=== PATIENT | female | born 1955 | race Caucasian/White ===

== ENCOUNTER 2018-07-28 07:44 | Inpatient (IN) | payer MEDICAID, OTHER ==
[2018-07-27 15:22] VITALS: BMI 34.4
[~2018-07-28] VITALS: Ht 157.5 cm; Wt 99.3 kg
[2018-07-28] VITALS (18 sets, daily range): BP systolic 96–141; BP diastolic 52–70; PULSE 58–74; RESP 9–23; Ht 157.5 cm; Wt 99.3 kg
[2018-07-28] MEDS ORDERED: ONDANSETRON 4 MG INJ IV ONE (08:00)
[2018-07-28] MEDS ORDERED: LANSOPRAZOLE 30 MG CAP PO ONE (08:00)
[2018-07-28] MEDS ORDERED: DEXAMETHASONE 4 MG/ML 1 ML INJ IV ONE (08:00)
[2018-07-28] MEDS ORDERED: ACETAMINOPHEN 500 MG TAB PO ONE (08:00)
[2018-07-28] MEDS ORDERED: LACTATED RINGER'S 1,000 ML IV* SCH (08:00)
[2018-07-28] MEDS ORDERED: CEFAZOLIN 1 GM/50 ML (PMX) 50 ML IVPB ONE (08:00)
[2018-07-28] MEDS ORDERED: MTF1000T PO (08:31)
[2018-07-28] MEDS ORDERED: GABA300C16 PO (08:31)
[2018-07-28] MEDS ORDERED: SULI150T PO (08:32)
[2018-07-28] MEDS ORDERED: LORA10TA3 PO (08:33)
[2018-07-28] MEDS ORDERED: BENA40TA56 PO (08:33)
[2018-07-28] MEDS ORDERED: FER325 PO (08:33)
[2018-07-28] MEDS ORDERED: [UNRECOGNIZED DRUG - CODE] PO (08:35)
[2018-07-28] MEDS ORDERED: CHRO1TAB6 PO (08:36)
[2018-07-28] MEDS ORDERED: MULT-88 PO (08:36)
[2018-07-28] MEDS ORDERED: HIP PAIN COCKTAIL VANCO INJ SCH ×7 (09:30)
[2018-07-28] MEDS ORDERED: oxyCODONE (CR) 10 MG TAB [oxyCONTIN] PO SCH (09:30)
[2018-07-28] MEDS ORDERED: DEXAMETHASONE 4 MG/ML 5 ML INJ ONE (09:47)
[2018-07-28] MEDS ORDERED: FENTAnyl 50 MCG/ML VIAL ONE (09:47)
[2018-07-28] MEDS ORDERED: CEFAZOLIN 1 GM INJ ONE (09:47)
[2018-07-28] MEDS ORDERED: GLYCOPYRROLATE 0.4 MG INJ ONE (09:47)
[2018-07-28] MEDS ORDERED: ONDANSETRON 4 MG INJ ONE (09:47)
[2018-07-28] MEDS ORDERED: ROCURONIUM 50 MG INJ ONE (09:47)
[2018-07-28] MEDS ORDERED: PROPOFOL 20 ML ONE (09:47)
[2018-07-28] MEDS ORDERED: MIDAZOLAM 1 MG/ML 2 ML INJ ONE (09:47)
[2018-07-28] MEDS ORDERED: morphine SULFATE/PF (10 MG/10 ML) INJ ONE (09:48)
[2018-07-28] MEDS ORDERED: BACITRACIN 50000 UNITS INJ ONE (09:59)
[2018-07-28] MEDS ORDERED: POLYMYXIN B 500000 UNIT INJ ONE (10:01)
--- NOTE | 2018-07-28 10:26 | HPN ---
Date/Time of Note Date/Time of Note DATE: 07/28/18 TIME: 10:25 Interval H&P Admission Note Pt. seen H&P reviewed: No system changes RENETTA LOZANO MD Jul 28, 2018 10:26
--- NOTE | 2018-07-28 10:37 | PREAC ---
Date/Time of Note Date/Time of Note DATE: 07/28/18 TIME: 10:35 Anesthesia Eval and Record Evaluation Time Pre-Procedure Interview DATE: 07/28/18 TIME: 10:35 Age 63 Sex female NPO: 8 hrs Preoperative diagnosis RIGHT HIP PRIMARY OSTEOARTHRITIS Planned procedure RIGHT SAMANTHA Past Medical History Past Medical History: Includes Cardio: HTN Endo: Diabetes GI: GERD, Morbid obesity Surgery & Anesthesia Issues No known issue Meds Anticoagulation: No Beta Tammie within 24 hr: No Reason Beta Tammie not given: Pt. not on B-Tammie Reported Medications Chrom Deyvi/Brindall Rizvi (GARCINIA [place] TABLET) 1 Each Tablet, 1 EACH PO BID, TAB 07/28/18 Multivit with Calcium,Iron,Min (Women's Daily Formula) 1 Each Tablet, 1 EACH PO DAILY, TAB 07/28/18 Oxycodone HCl/Acetaminophen (Oxycodon-Acetaminophen 7.5-325) 1 Each Tablet, 1 EACH PO BID PRN for SEVERE PAIN LEVEL 7-10, TAB 07/28/18 Ferrous Sulfate* (Ferrous Sulfate*) 325 Mg Tabec, 325 MG PO BID, TAB 07/28/18 Loratadine* (Loratadine*) 10 Mg Tablet, 10 MG PO DAILY, #30 TAB 07/28/18 Benazepril Hcl* (Benazepril Hcl*) 40 Mg Tablet, 40 MG PO DAILY, #30 TAB 07/28/18 Sulindac* (Sulindac*) 150 Mg Tablet, 150 MG PO BID, TAB 07/28/18 Gabapentin* (Gabapentin*) 300 Mg Capsule, 300 MG PO TID, #90 CAP 07/28/18 Metformin* (Glucophage*) 1,000 Mg Tablet, 1000 MG PO BID, #60 TAB 07/28/18 Current Medications Lactated Ringer's 1,000 ml @ 125 mls/hr Q8H IV* ; Start 07/28/18 at 08:00; Stop 07/28/18 at 15:59 Oxycodone HCl (Oxycontin) 10 mg ONCE PO Last administered on 07/28/18at 09:20; Admin Dose 10 MG; Start 07/28/18 at 09:30; Stop 07/28/18 at 12:00 Ropivacaine/ Morphine Sulfate/ Clonidine/ Epinephrine/ Ketorolac Tromethamine/ Vancomycin HCl/ Sodium Chloride INTRA-OP INJ ; Start 07/28/18 at 09:30; Stop 07/28/18 at 16:00 Meds reviewed: Yes Allergies Coded Allergies: trimethoprim (Unverified Allergy, Severe, WHITE BLOOD CELL COUNT DROPS, 07/28/18) PER PT ciprofloxacin (Unverified Allergy, Unknown, RASHES, 07/28/18) PER PT codeine (Unverified Allergy, Unknown, RASHES, 07/28/18) PER PT phenobarbital (Unverified Allergy, Unknown, 07/27/18) sulfamethoxazole (Unverified Allergy, Unknown, RASHES, 07/28/18) PER PT valproic acid (Unverified Allergy, Unknown, RASHES, 07/28/18) PER PT Allergies Reviewed: Yes Labs/Studies Labs Reviewed: Reviewed by anesthesiologist test: N/A Studies: ECG (NK), CXR Pre-procedure Exam Last vitals Vital Signs Date Temp Pulse Resp B/P (MAP) Pulse Ox O2 O2 Flow FiO2 Time Delivery Rate 07/28/18 98.2 65 16 133/60 97 Room Air 09:27 (84) Airway: Adequate mouth opening, Adequate thyromental dist Mallampati: Mallampati II Teeth: Normal Lung: Normal Heart: Normal ASA Physical Status ASA physical status: 3 Emergency: None Planned Anesthetic General/MAC: ETT Neuraxial: Spinal Planned Pain Management Sub-arachniod narcotics, Parenteral pain med Pre-operative Attestations Prior to commencing anesthesia and surgery, the patient was re-evaluated, there was verification of: *The patient's identity *The results of appropriate recent lab work and preoperative vital signs *The above evaluation not changing prior to induction *Anesthetic plan, risk benefits, alternative and complications discussed with patient/family; questions answered; patient/family understands, accepts and wishes to proceed. oGrdon Landis M.D. Jul 28, 2018 10:37
[2018-07-28] MEDS: TRANEXAMIC ACID 1GM/100ML(PMX) 100 ML PRE-OP X1 IVPB ONE (11:15)
[2018-07-28] MEDS ORDERED: TRANEXAMIC ACID 1GM/100ML(PMX) 100 ML ONE (11:39)
[2018-07-28] MEDS ORDERED: MIDAZOLAM 1 MG/ML 2 ML INJ IV PRN (12:00)
[2018-07-28] MEDS ORDERED: LABETALOL HCL 20MG INJ IV PRN (12:00)
[2018-07-28] MEDS ORDERED: DIPHENHYDRAMINE 50 MG INJ IV PRN ×2 (12:00)
[2018-07-28] MEDS ORDERED: ALBUTEROL 0.083% (NEB) 2.5 MG/3 ML AMP HHN PRN (12:00)
[2018-07-28] MEDS ORDERED: NALBUPHINE HCL (10 MG/1 ML) INJ IV PRN (12:00)
[2018-07-28] MEDS ORDERED: MEPERIDINE 25 MG INJ IV PRN (12:00)
[2018-07-28] MEDS ORDERED: ZOLPIDEM 5 MG TAB PO PRN (12:00)
[2018-07-28] MEDS ORDERED: ONDANSETRON 4 MG INJ IV PRN ×2 (12:00)
[2018-07-28] MEDS ORDERED: IPRATROPIUM (NEB) 0.5 MG/2.5 ML AMP HHN PRN (12:00)
[2018-07-28] MEDS ORDERED: hydrALAzine 20 MG INJ IV PRN (12:00)
[2018-07-28] MEDS ORDERED: HYDROmorphONE 1 MG/5 ML IV SYRINGE IV PRN ×3 (12:00)
[2018-07-28] MEDS ORDERED: TRIMETHOBENZAMIDE 100 MG/ML VIAL IM PRN ×2 (12:00)
[2018-07-28] MEDS ORDERED: NALOXONE (0.4 MG/ML) INJ IV PRN ×2 (12:00→13:30)
[2018-07-28] MEDS ORDERED: EPHEDrine SULFATE 50 MG/5 ML SYG IV PRN (12:00)
[2018-07-28] MEDS ORDERED: FENTAnyl 50 MCG/ML VIAL IV PRN ×3 (12:00)
[2018-07-28] MEDS ORDERED: morphine 2 MG INJ IV PRN ×2 (12:00)
[2018-07-28] MEDS ORDERED: SUGAMMADEX SODIUM 200 MG/2 ML VIAL IV ONE (12:58)
--- NOTE | 2018-07-28 13:02 | SIPON ---
Date/Time of Note Date/Time of Note DATE: 07/28/18 TIME: 13:01 Operative Report Preoperative Diagnosis Right Hip Osteoarthritis Postoperative Diagnosis Same Operation/Procedure Performed Right Total Hip Arthroplasty Surgeon Elana Lozano MD assistive technology specialist Naun Dickens Second assist: MIKA SAMS Anesthesia: spinal Estimated blood loss: other Transfusion Required none Specimen bone Grafts/Implants none Complications none ELANA LOZANO MD Jul 28, 2018 13:02
--- NOTE | 2018-07-28 13:06 | OPR ---
Date/Time of Note Date/Time of Note DATE: 07/28/18 TIME: 13:02 Operative Report Free Text/Dictation DATE OF OPERATION: July 28, 2018 PREOPERATIVE DIAGNOSIS: Right hip osteoarthritis. POSTOPERATIVE DIAGNOSIS: Right hip osteoarthritis. PROCEDURES PERFORMED: 1. Right total hip arthroplasty. CPT code 90698. 2. Computer assisted navigational procedure, CPT code 37500. 3. Interpretation of AP Pelvis x-ray. 4. Interpretation of right hip, 2 views. SURGEON: Renetta Lozano. ASSEMBLY OPERATOR: 1. MARCEL Conner 2. Naun Dickens. ANESTHESIOLOGIST: Dr. Landis ANESTHESIA: Spinal ESTIMATED BLOOD LOSS: 300 mL. COMPLICATIONS: None. SPECIMENS: Resected bone. DISPOSITION: PACU in stable condition. IMPLANT USED: A DePuy Actis size 4 standard stem, 32/+1 delta ceramic femoral head, 48 [place] Cup, 32 mm liner COMPLICATIONS: None. DISPOSITION: To PACU in stable condition. INDICATION FOR PROCEDURE: This is an 63 year-old female with endstage osteoarthritis of the right hip who had failed nonoperative management. Risks, benefits, alternatives of surgical intervention were discussed with the patient and informed consent was obtained. The risks of surgery include but are not limited to infection, deep venous thrombosis, pulmonary embolism, leg length discrepancy, fracture, damage to neurovascular structures requiring repair, loosening of the prosthesis, wear of prosthesis, need for revision surgery, heart attack, stroke, need for blood transfusion, risks associated with anesthesia and even . DESCRIPTION OF PROCEDURE: The patient was met in the preoperative suite and the correct operative site was confirmed and marked. Patient was then brought into operating room. After induction of general anesthesia, the patient was placed in the supine position on the table. The right lower extremity was prepped and draped in the usual sterile fashion. Before starting, a timeout was taken to identify the correct operative site, the patients name and medical record number and to confirm the preoperative antibiotics consisting of 1 gram of IV Ancef, along with 1 gram of tranexamic acid were administered. At this point, an 8 cm incision was made approximately 2 cm lateral and 1 cm distal to the ASIS. The incision was carried down to the fascia. The fascia was then incised. Then, 2 Allis clamps were placed. The interval was then bluntly developed and the tensor fascia steven was then retracted laterally. The lateral circumflex vessels were identified and coagulated. The anterior capsule was then visualized and a capsulotomy was performed. At this point, markings were made for the napkin ring osteotomy of the femoral neck. Using the saw the initial osteotomy was th en made and completed with the use of an osteotome. A Radha was then used to remove the napkin ring and a corkscrew was then placed in the femoral head and the head was then removed. The head was sized to 44 mm. Sequential reaming was begun with a 43 mm reamer, going up to a 47 mm reamer. A trial 48 mm cup was then impacted and the radlink was then used to determine the appropriate anteversion and abduction of the cup. The cup was noted to be in approximately 41 degrees of inclination, and 18 degrees of anteversion. The trial was then removed. The appropriate size cup was then placed and again the radlink was used to determine the inclination and anteversion, and was noted be unchanged. The 32 mm liner was then impacted into place and the final acetabular x-rays were taken which again demonstrated the cup to be in appropriate abduction and anteversion. At this point, the femoral lift was then used and the leg was then placed in external rotation, extension, and adduction. Retractors were placed and the femoral releases were performed using a box osteotome followed by a canal finder. Sequential broaching was begun with a 0 actis broach going up to a size 4 standard broach. The trial 4 standard offset stem along with a 32/+1 trial head and neck were placed. The hip was then reduced and taken through range of motion, noted to be stable in extension and external rotation of up to 110 degrees. AP x-rays of the pelvis and right hip, 2 view x-rays were taken. The x-rays demonstrated the prosthesis to be in the correct position with equal leg lengths. The trial components were then removed. The appropriate sized components were then placed. The hip was again reduced with unchanged stability and equal leg lengths and no fractures were seen. The hip was again taken through range of motion and noted to be stable to extension and external rotation. The wound was then thoroughly irrigated. The capsule and the fascia were closed using #1 Stratafix. The subcutaneous tissue was closed using 2-0 Vicryl and the skin with 4-0 Monocryl in subcuticular fashion and Steri-Strips were applied. There were no complications. Patient was awakened and taken to postoperative care unit in stable condition. Prior to transfer, the patient was noted to have equal leg lengths and a palpable dorsalis pedis pulse. POSTOPERATIVE CARE: Patient will be weightbearing as tolerated. Patient will work with physical therapy, and receive multimodal pain management.. Patient will receive two additional doses of IV Ancef along with aspirin 81 mg p.o. b.i.d. for 6 weeks. Patient will have SCDs while in the hospital. Upon discharge, patient will follow up in my office within 2 weeks postoperatively. RENETTA LOZANO MD Jul 28, 2018 13:06
[2018-07-28] MEDS: TRANEXAMIC ACID 1GM/100ML(PMX) 100 ML INTRA-OP X1 IVPB ONE (13:09)
[2018-07-28] MEDS ORDERED: HYDROCODONE/APAP (5/325) TAB PO PRN (13:30)
[2018-07-28] MEDS ORDERED: DOCUSATE SODIUM 100 MG CAP PO ONE ×2 (13:30→13:39)
[2018-07-28] MEDS ORDERED: NACL 0.9% 3 ML SYG IV SCH (13:30)
[2018-07-28] MEDS: ONDANSETRON 4 MG INJ IV SCH ×2 (13:30→19:30)
[2018-07-28] MEDS ORDERED: oxyCODONE 5 MG TAB PO PRN (13:30)
[2018-07-28] MEDS ORDERED: ASPIRIN 81 MG TAB ONE (13:39)
[2018-07-28] MEDS ORDERED: CEFAZOLIN 2 GM/50 ML (PMX) 50 ML IVPB ONE (13:48)
[2018-07-28] MEDS: CEFAZOLIN 2 GM/50 ML (PMX) 50 ML IVPB SCH ×2 (13:53→21:38)
--- NOTE | 2018-07-28 14:11 | PAC ---
Date/Time of Note Date/Time of Note DATE: 07/28/18 TIME: 14:11 Post-Anesthesia Notes Post-Anesthesia Note Last documented vital signs Vital Signs Date Temp Pulse Resp B/P (MAP) Pulse Ox O2 O2 Flow FiO2 Time Delivery Rate 07/28/18 98.0 13:45 07/28/18 65 16 133/60 97 Room Air 09:27 (84) Activity: WNL Respiratory function: WNL Cardiovascular function: WNL Mental status: Baseline Pain reasonably controlled: Yes Hydration appropriate: Yes Nausea/Vomiting absent: Yes Gordon Landis M.D. Jul 28, 2018 14:11
--- NOTE | 2018-07-28 16:38 | CONS ---
Assessment/Plan Assessment/Plan Hospital Course (Demo Recall) 63 yo female with DMII, obesity, hypertension who is POD0 for SAMANTHA. We have been asked to assist with medication management s/p SAMANTHA: - Pain control - DVT ppx - PT/OT DMII: - continue metfomrin Hypertension: - Continue lisinopril Consultation Date/Type/Reason Admit Date/Time Jul 28, 2018 at 07:44 Reason for Consultation Med management Date/Time of Note DATE: 07/28/18 TIME: 16:33 Hx of Present Illness 63 yo female with h/o OA who is admitted following R SAMANTHA Surgery uncomplicated. pain controlled Says she generally takes oxycodone for pain. Metformin for DMII. Lisionpirl for hypertension Wants to go to sleep now Constitutional: no complaints, improved Eyes: no complaints ENT: no complaints Respiratory: no complaints Cardiovascular: no complaints Gastrointestinal: no complaints Genitourinary: no complaints Musculoskeletal: no complaints Skin: no complaints Neurologic: no complaints Endocrine: no complaints Lymphatic: no complaints Psychological: no complaints, nl mood/affect Immunologic: no complaints Past Medical History Medical History: diabetes Home Meds Reported Medications Chrom Deyvi/Brindall Rizvi (GARCINIA [place] TABLET) 1 Each Tablet, 1 EACH PO BID, TAB 07/28/18 Multivit with Calcium,Iron,Min (Women's Daily Formula) 1 Each Tablet, 1 EACH PO DAILY, TAB 07/28/18 Oxycodone HCl/Acetaminophen (Oxycodon-Acetaminophen 7.5-325) 1 Each Tablet, 1 EACH PO BID PRN for SEVERE PAIN LEVEL 7-10, TAB 07/28/18 Ferrous Sulfate* (Ferrous Sulfate*) 325 Mg Tabec, 325 MG PO BID, TAB 07/28/18 Loratadine* (Loratadine*) 10 Mg Tablet, 10 MG PO DAILY, #30 TAB 07/28/18 Benazepril Hcl* (Benazepril Hcl*) 40 Mg Tablet, 40 MG PO DAILY, #30 TAB 07/28/18 Sulindac* (Sulindac*) 150 Mg Tablet, 150 MG PO BID, TAB 07/28/18 Gabapentin* (Gabapentin*) 300 Mg Capsule, 300 MG PO TID, #90 CAP 07/28/18 Metformin* (Glucophage*) 1,000 Mg Tablet, 1000 MG PO BID, #60 TAB 07/28/18 Medications Current Medications Hydromorphone HCl (Dilaudid) 0.2 mg PACU PRN IV MILD PAIN 1-3; Start 07/28/18 at 12:00; Stop 07/28/18 at 17:00 Hydromorphone HCl (Dilaudid) 0.4 mg PACU PRN IV MOD PAIN 4-6; Start 07/28/18 at 12:00; Stop 07/28/18 at 17:00 Hydromorphone HCl (Dilaudid) 0.6 mg PACU PRN IV SEVERE PAIN 7-10; Start 07/28/18 at 12:00; Stop 07/28/18 at 17:00 Fentanyl (Sublimaze) 25 mcg PACU ORDER PRN IV MILD PAIN 1-3; Start 07/28/18 at 12:00; Stop 07/28/18 at 17:00 Fentanyl (Sublimaze) 50 mcg PACU ORDER PRN IV MOD PAIN 4-6; Start 07/28/18 at 12:00; Stop 07/28/18 at 17:00 Fentanyl (Sublimaze) 75 mcg PACU ORDER PRN IV SEVERE PAIN 7-10; Start 07/28/18 at 12:00; Stop 07/28/18 at 17:00 Ondansetron HCl (Zofran Inj) 4 mg PACU ORDER PRN IV NAUSEA/VOMITING; Start 07/28/18 at 12:00; Stop 07/28/18 at 17:00 Trimethobenzamide HCl (Tigan) 200 mg PACU ORDER PRN IM NAUSEA/VOMITING; Start 07/28/18 at 12:00; Stop 07/28/18 at 17:00 Labetalol HCl (Labetalol) 5 mg PACU ORDER PRN IV HIGH BLOOD PRESSURE; Start 07/28/18 at 12:00; Stop 07/28/18 at 17:00 Hydralazine HCl (Apresoline) 5 mg PACU ORDER PRN IV HIGH BLOOD PRESSURE; Start 07/28/18 at 12:00; Stop 07/28/18 at 17:00 Ephedrine Sulfate 5 mg PACU ORDER PRN IV BLOOD PRESSURE SUPPORT; Start 07/28/18 at 12:00; Stop 07/28/18 at 17:00 Albuterol (Proventil 0.083% (Neb)) 2.5 mg PACU ORDER PRN HHN .WHEEZING; Start 07/28/18 at 12:00; Stop 07/28/18 at 17:00 Ipratropium [place] (Atrovent 0.02% (Neb)) 0.5 mg PACU ORDER PRN HHN .WHEEZING; Start 07/28/18 at 12:00; Stop 07/28/18 at 17:00 Meperidine HCl (Demerol) 25 mg PACU ORDER PRN IV .RIGORS; Start 07/28/18 at 12:00; Stop 07/28/18 at 17:00 Diphenhydramine HCl (Benadryl) 25 mg PACU ORDER PRN IV .PRURITUS Last administered on 07/28/18at 14:02; Admin Dose 50 MG; Start 07/28/18 at 12:00; Stop 07/28/18 at 17:00 Midazolam HCl (Versed) 0.5 mg PACU ORDER PRN IV .ANXIETY; Start 07/28/18 at 12:00; Stop 07/28/18 at 17:00 Morphine Sulfate (morphine) 2 mg Q2H PRN IV .PAIN 1-5; Start 07/28/18 at 12:00; Stop 07/29/18 at 11:10 Morphine Sulfate (morphine) 4 mg Q2H PRN IV .PAIN 6-10; Start 07/28/18 at 12:00; Stop 07/29/18 at 11:10 Diphenhydramine HCl (Benadryl) 25 mg Q4H PRN IV .PRURITUS; Start 07/28/18 at 12:00; Stop 07/29/18 at 11:10 Nalbuphine HCl (Nubain) 10 mg Q4H PRN IV .PRURITUS; Start 07/28/18 at 12:00; Stop 07/29/18 at 11:10 Ondansetron HCl (Zofran Inj) 4 mg Q6H PRN IV .NAUSEA/VOMITING; Start 07/28/18 at 12:00; Stop 07/29/18 at 11:10 Trimethobenzamide HCl (Tigan) 200 mg Q6H PRN IM .NAUSEA/VOMITING; Start 07/28/18 at 12:00; Stop 07/29/18 at 11:10 Zolpidem Tartrate (Ambien) 5 mg HS MAY REPEAT X 1 PRN PO .INSOMNIA; Start 07/28/18 at 12:00; Stop 07/29/18 at 11:10 Naloxone HCl (Narcan) 0.2 mg Q2M PRN IV .RESP RATE; Start 07/28/18 at 12:00; Stop 07/29/18 at 11:10 Miscellaneous Information (* Miscellaneous Pharmacy Order) DURAMORPH: 0.1 MG SPI... GIVEN NEURAXIAL XX ; Start 07/28/18 at 12:00 Oxycodone HCl (Roxicodone) 15 mg Q4H PRN PO .PAIN; Start 07/28/18 at 13:30 Ondansetron HCl (Zofran Inj) 4 mg Q6H IV ; Start 07/28/18 at 13:30; Stop 07/29/18 at 07:31 Cefazolin Sodium/ Dextrose 50 ml @ 100 mls/hr Q8H IVPB Last administered on 07/28/18at 13:53; Admin Dose 100 MLS/HR; Start 07/28/18 at 13:30; Stop 07/29/18 at 05:59 Celecoxib (Celebrex) 100 mg BID PO ; Start 07/29/18 at 09:00; Status UNV Gabapentin (Neurontin) 100 mg TID PO ; Start 07/28/18 at 21:00 Pantoprazole (Protonix Tab) 40 mg DAILY@06 PO ; Start 07/29/18 at 06:00 Docusate Sodium (Colace) 200 mg BID PO ; Start 07/29/18 at 09:00; Stop 07/31/18 at 21:01 Ketorolac Tromethamine (Toradol) 15 mg Q6H PRN IV .PAIN; Start 07/28/18 at 13:30 Naloxone HCl (Narcan) 0.2 mg Q2M PRN IV .RESP RATE; Start 07/28/18 at 13:30 IV Flush (NS 3 ml) 3 ml per protocol IV ; Start 07/28/18 at 13:30 Aspirin (Halfprin) 81 mg BID PO ; Start 07/29/18 at 09:00 Acetaminophen/ Hydrocodone Bitart ([place] (5/325)) 2 tab Q6H PRN PO MODERATE PAIN LEVEL 4-6; Start 07/28/18 at 13:30 Benazepril HCl (Lotensin) 40 mg DAILY PO ; Start 07/29/18 at 09:00; Status UNV Gabapentin (Neurontin) 300 mg TID PO ; Start 07/28/18 at 21:00; Status UNV Metformin HCl (Glucophage) 1,000 mg BID PO ; Start 07/28/18 at 21:00; Status UNV Allergies: Coded Allergies: trimethoprim (Unverified Allergy, Severe, WHITE BLOOD CELL COUNT DROPS, 07/28/18) PER PT ciprofloxacin (Unverified Allergy, Unknown, RASHES, 07/28/18) PER PT codeine (Unverified Allergy, Unknown, RASHES, 07/28/18) PER PT phenobarbital (Unverified Allergy, Unknown, 07/27/18) sulfamethoxazole (Unverified Allergy, Unknown, RASHES, 07/28/18) PER PT valproic acid (Unverified Allergy, Unknown, RASHES, 07/28/18) PER PT Past Surgical History Past Surgical Hx: no surgical history Family History Significant Family History: no pertinent family hx Social History Alcohol Use: none Smoking Status: Never smoker Drug Use: none Exam/Review of Systems Exam Vitals Vital Signs Date Temp Pulse Resp B/P (MAP) Pulse Ox O2 O2 Flow FiO2 Time Delivery Rate 07/28/18 72 23 118/62 98 Room Air 14:33 (80) 07/28/18 3.0 14:28 07/28/18 98.0 13:45 Constitutional: alert, oriented, well developed Psych: no complaints, nl mood/affect Head: normocephalic, atraumatic Eyes: nl conjunctiva, EOMI, nl lids, nl sclera, PERRL ENMT: nl external ears & nose, nl lips & teeth, nl nasal mucosa & septum Neck: supple, non-tender Respiratory: clear to auscultation, normal air movement Cardiovascular: regular rate and rhythm, nl pulses Gastrointestinal: soft, nl liver, spleen, non-tender Musculoskeletal: nl extremities to inspection, nl gait and stance Extremities: normal pulses Neurological: LEAD CLINICAL RESEARCH COORDINATOR II-XII intact, nl mental status, nl speech, nl strength Skin: nl turgor; No rash or lesions Lymph: nl lymph nodes Results Results 24hrs Laboratory Tests Test 07/28/18 08:42 07/28/18 14:45 Bedside Glucose 90 147 Medications Medication Current Medications Hydromorphone HCl (Dilaudid) 0.2 mg PACU PRN IV MILD PAIN 1-3; Start 07/28/18 at 12:00; Stop 07/28/18 at 17:00 Hydromorphone HCl (Dilaudid) 0.4 mg PACU PRN IV MOD PAIN 4-6; Start 07/28/18 at 12:00; Stop 07/28/18 at 17:00 Hydromorphone HCl (Dilaudid) 0.6 mg PACU PRN IV SEVERE PAIN 7-10; Start 07/28/18 at 12:00; Stop 07/28/18 at 17:00 Fentanyl (Sublimaze) 25 mcg PACU ORDER PRN IV MILD PAIN 1-3; Start 07/28/18 at 12:00; Stop 07/28/18 at 17:00 Fentanyl (Sublimaze) 50 mcg PACU ORDER PRN IV MOD PAIN 4-6; Start 07/28/18 at 12:00; Stop 07/28/18 at 17:00 Fentanyl (Sublimaze) 75 mcg PACU ORDER PRN IV SEVERE PAIN 7-10; Start 07/28/18 at 12:00; Stop 07/28/18 at 17:00 Ondansetron HCl (Zofran Inj) 4 mg PACU ORDER PRN IV NAUSEA/VOMITING; Start 07/28/18 at 12:00; Stop 07/28/18 at 17:00 Trimethobenzamide HCl (Tigan) 200 mg PACU ORDER PRN IM NAUSEA/VOMITING; Start 07/28/18 at 12:00; Stop 07/28/18 at 17:00 Labetalol HCl (Labetalol) 5 mg PACU ORDER PRN IV HIGH BLOOD PRESSURE; Start 07/28/18 at 12:00; Stop 07/28/18 at 17:00 Hydralazine HCl (Apresoline) 5 mg PACU ORDER PRN IV HIGH BLOOD PRESSURE; Start 07/28/18 at 12:00; Stop 07/28/18 at 17:00 Ephedrine Sulfate 5 mg PACU ORDER PRN IV BLOOD PRESSURE SUPPORT; Start 07/28/18 at 12:00; Stop 07/28/18 at 17:00 Albuterol (Proventil 0.083% (Neb)) 2.5 mg PACU ORDER PRN HHN .WHEEZING; Start 07/28/18 at 12:00; Stop 07/28/18 at 17:00 Ipratropium [place] (Atrovent 0.02% (Neb)) 0.5 mg PACU ORDER PRN HHN .WHEEZING; Start 07/28/18 at 12:00; Stop 07/28/18 at 17:00 Meperidine HCl (Demerol) 25 mg PACU ORDER PRN IV .RIGORS; Start 07/28/18 at 12:00; Stop 07/28/18 at 17:00 Diphenhydramine HCl (Benadryl) 25 mg PACU ORDER PRN IV .PRURITUS Last administered on 07/28/18at 14:02; Admin Dose 50 MG; Start 07/28/18 at 12:00; Stop 07/28/18 at 17:00 Midazolam HCl (Versed) 0.5 mg PACU ORDER PRN IV .ANXIETY; Start 07/28/18 at 12:00; Stop 07/28/18 at 17:00 Morphine Sulfate (morphine) 2 mg Q2H PRN IV .PAIN 1-5; Start 07/28/18 at 12:00; Stop 07/29/18 at 11:10 Morphine Sulfate (morphine) 4 mg Q2H PRN IV .PAIN 6-10; Start 07/28/18 at 12:00; Stop 07/29/18 at 11:10 Diphenhydramine HCl (Benadryl) 25 mg Q4H PRN IV .PRURITUS; Start 07/28/18 at 12:00; Stop 07/29/18 at 11:10 Nalbuphine HCl (Nubain) 10 mg Q4H PRN IV .PRURITUS; Start 07/28/18 at 12:00; Stop 07/29/18 at 11:10 Ondansetron HCl (Zofran Inj) 4 mg Q6H PRN IV .NAUSEA/VOMITING; Start 07/28/18 at 12:00; Stop 07/29/18 at 11:10 Trimethobenzamide HCl (Tigan) 200 mg Q6H PRN IM .NAUSEA/VOMITING; Start 07/28/18 at 12:00; Stop 07/29/18 at 11:10 Zolpidem Tartrate (Ambien) 5 mg HS MAY REPEAT X 1 PRN PO .INSOMNIA; Start 07/28/18 at 12:00; Stop 07/29/18 at 11:10 Naloxone HCl (Narcan) 0.2 mg Q2M PRN IV .RESP RATE; Start 07/28/18 at 12:00; Stop 07/29/18 at 11:10 Miscellaneous Information (* Miscellaneous Pharmacy Order) DURAMORPH: 0.1 MG SPI... GIVEN NEURAXIAL XX ; Start 07/28/18 at 12:00 Oxycodone HCl (Roxicodone) 15 mg Q4H PRN PO .PAIN; Start 07/28/18 at 13:30 Ondansetron HCl (Zofran Inj) 4 mg Q6H IV ; Start 07/28/18 at 13:30; Stop 07/29/18 at 07:31 Cefazolin Sodium/ Dextrose 50 ml @ 100 mls/hr Q8H IVPB Last administered on 07/28/18at 13:53; Admin Dose 100 MLS/HR; Start 07/28/18 at 13:30; Stop 07/29/18 at 05:59 Celecoxib (Celebrex) 100 mg BID PO ; Start 07/29/18 at 09:00; Status UNV Gabapentin (Neurontin) 100 mg TID PO ; Start 07/28/18 at 21:00 Pantoprazole (Protonix Tab) 40 mg DAILY@06 PO ; Start 07/29/18 at 06:00 Docusate Sodium (Colace) 200 mg BID PO ; Start 07/29/18 at 09:00; Stop 07/31/18 at 21:01 Ketorolac Tromethamine (Toradol) 15 mg Q6H PRN IV .PAIN; Start 07/28/18 at 13:30 Naloxone HCl (Narcan) 0.2 mg Q2M PRN IV .RESP RATE; Start 07/28/18 at 13:30 IV Flush (NS 3 ml) 3 ml per protocol IV ; Start 07/28/18 at 13:30 Aspirin (Halfprin) 81 mg BID PO ; Start 07/29/18 at 09:00 Acetaminophen/ Hydrocodone Bitart ([place] (5/325)) 2 tab Q6H PRN PO MODERATE PAIN LEVEL 4-6; Start 07/28/18 at 13:30 Benazepril HCl (Lotensin) 40 mg DAILY PO ; Start 07/29/18 at 09:00; Status UNV Gabapentin (Neurontin) 300 mg TID PO ; Start 3/6/19 at 21:00; Status UNV Metformin HCl (Glucophage) 1,000 mg BID PO ; Start 07/28/18 at 21:00; Status UNV JOEL NEAL MD Jul 28, 2018 16:38
[2018-07-28] MEDS ORDERED: GLUCOSE GEL 15 GRAM TUBE BUCCAL PRN (17:00)
[2018-07-28] MEDS ORDERED: DEXTROSE 50% 50 ML SYRINGE IV PRN ×2 (17:00)
[2018-07-28] MEDS ORDERED: GLUCAGON 1 MG INJ IM PRN (17:00)
[2018-07-28] MEDS ORDERED: GLUCOSE GEL 15 GRAM TUBE PO PRN ×2 (17:00)
[2018-07-28] MEDS: metFORMIN 500 MG TAB PO SCH (17:45)
[2018-07-28] MEDS ORDERED: GABAPENTIN 100 MG CAP PO SCH (21:00)
[2018-07-28] MEDS ORDERED: GABAPENTIN 300 MG CAP PO SCH (21:00)
[2018-07-29] MEDS: ONDANSETRON 4 MG INJ IV SCH ×2 (01:30→07:30)
[2018-07-29 02:12] VITALS: BP 103/51; PULSE 58; RESP 18
[2018-07-29] MEDS: KETOROLAC 15 MG INJ IV PRN ×2 (02:50→11:30)
[2018-07-29] MEDS: CEFAZOLIN 2 GM/50 ML (PMX) 50 ML IVPB SCH (05:32)
[2018-07-29] MEDS ORDERED: PANTOPRAZOLE (EC) 40 MG TAB PO SCH (06:00)
[2018-07-29 07:35] VITALS: BP 102/55; PULSE 62; RESP 18
[2018-07-29] MEDS ORDERED: ENOXAPARIN 30 MG/0.3 ML SYG SC SCH (09:00)
[2018-07-29] MEDS ORDERED: DOCUSATE SODIUM 100 MG CAP PO SCH (09:00)
[2018-07-29] MEDS ORDERED: ASPIRIN (EC) 81 MG TAB PO SCH (09:00)
[2018-07-29] MEDS ORDERED: BENAZEPRIL 40 MG TAB PO SCH (09:00)
[2018-07-29] MEDS ORDERED: CELECOXIB 100 MG CAP PO SCH (09:00)
[2018-07-29] MEDS: metFORMIN 500 MG TAB PO SCH ×2 (09:22→17:55)
--- NOTE | 2018-07-29 10:12 | CONS ---
Assessment/Plan Assessment/Plan Assessment/Plan (Daily) 63 yo female with DMII, obesity, hypertension who is POD1 for SAMANTHA. 1 s/p SAMANTHA: - Pain control - DVT ppx - PT/OT ? Aspirin/prophylaxis 2DMII: - continue metfomrin 3 Hypertension: - Continue lisinopril 4 anemia -Continue to monitor 5 mild leukocytosis continue to monitor no fevers Consultation Date/Type/Reason Admit Date/Time Jul 28, 2018 at 07:44 Initial Consult Date Date/Time of Note DATE: 07/29/18 TIME: 10:12 24 HR Interval Summary Free Text/Dictation Doing well. Working with physical therapy Exam/Review of Systems Exam Vitals Vital Signs Date Temp Pulse Resp B/P (MAP) Pulse Ox O2 O2 Flow FiO2 Time Delivery Rate 07/29/18 98.1 62 18 102/55 98 07:35 (71) 07/28/18 Room Air 14:33 07/28/18 3.0 14:28 Intake and Output 07/28/18 07/28/18 07/29/18 1515:00 23:00 07:00 IntakeIntake Total 2800 ml 730 ml 50 ml OutputOutput Total 150 ml 400 ml BalanceBalance 2650 ml 330 ml 50 ml Exam Awake alert oriented Neck supple Clear lungs Regular rate and rhythm Is post right total hip replacement Multiple surgical scars on both knees Results Result Diagram: 07/29/18 0429 07/29/18 0429 Results 24hrs Laboratory Tests Test 07/28/18 14:45 07/28/18 17:45 07/29/18 04:29 07/29/18 06:49 Bedside Glucose 147 131 White Blood Count 11.0 H Red Blood Count 4.00 L Hemoglobin 9.5 L Hematocrit 30.7 L Mean Corpuscular 76.8 L Volume Mean Corpuscular 23.8 L Hemoglobin Mean Corpuscular 30.9 L Hemoglobin Concent Red Cell Distribution 19.5 H Width Platelet Count 152 Mean Platelet Volume Immature Granulocytes 0.600 H % Neutrophils % 83.5 H Lymphocytes % 9.3 L Monocytes % 6.5 Eosinophils % 0.0 Basophils % 0.1 Nucleated Red Blood 0.0 Cells % Immature Granulocytes 0.070 H # Neutrophils # 9.2 H Lymphocytes # 1.0 Monocytes # 0.7 Eosinophils # 0.0 Basophils # 0.0 Nucleated Red Blood 0.0 Cells # Prothrombin Time 13.5 Prothrombin Time 1.1 Ratio INR International 1.02 Normalized Ratio Sodium Level 140 Potassium Level 4.1 Chloride Level 104 Carbon Dioxide Level 28 Anion Gap 8 Blood Urea Nitrogen 17 Creatinine 0.59 Est Glomerular > 60 Filtrat Rate mL/min Glucose Level 135 Calcium Level 9.2 Lab Scanned Report REFERENCE LAB Test 07/29/18 09:15 Bedside Glucose 125 Medications Medication Current Medications Morphine Sulfate (morphine) 2 mg Q2H PRN IV .PAIN 1-5; Start 07/28/18 at 12:00; Stop 07/29/18 at 11:10 Morphine Sulfate (morphine) 4 mg Q2H PRN IV .PAIN 6-10; Start 07/28/18 at 12:00; Stop 07/29/18 at 11:10 Diphenhydramine HCl (Benadryl) 25 mg Q4H PRN IV .PRURITUS; Start 07/28/18 at 12:00; Stop 07/29/18 at 11:10 Nalbuphine HCl (Nubain) 10 mg Q4H PRN IV .PRURITUS; Start 07/28/18 at 12:00; Stop 07/29/18 at 11:10 Ondansetron HCl (Zofran Inj) 4 mg Q6H PRN IV .NAUSEA/VOMITING; Start 07/28/18 at 12:00; Stop 07/29/18 at 11:10 Trimethobenzamide HCl (Tigan) 200 mg Q6H PRN IM .NAUSEA/VOMITING; Start 07/28/18 at 12:00; Stop 07/29/18 at 11:10 Zolpidem Tartrate (Ambien) 5 mg HS MAY REPEAT X 1 PRN PO .INSOMNIA; Start 07/28/18 at 12:00; Stop 07/29/18 at 11:10 Naloxone HCl (Narcan) 0.2 mg Q2M PRN IV .RESP RATE; Start 07/28/18 at 12:00; Stop 07/29/18 at 11:10 Miscellaneous Information (* Miscellaneous Pharmacy Order) DURAMORPH: 0.1 MG SPI... GIVEN NEURAXIAL XX ; Start 07/28/18 at 12:00 Oxycodone HCl (Roxicodone) 15 mg Q4H PRN PO .PAIN; Start 07/28/18 at 13:30 Pantoprazole (Protonix Tab) 40 mg DAILY@06 PO Last administered on 07/29/18at 05:32; Admin Dose 40 MG; Start 07/29/18 at 06:00 Docusate Sodium (Colace) 200 mg BID PO Last administered on 07/29/18at 09:22; Admin Dose 200 MG; Start 07/29/18 at 09:00; Stop 07/31/18 at 21:01 Ketorolac Tromethamine (Toradol) 15 mg Q6H PRN IV .PAIN Last administered on 07/29/18at 02:50; Admin Dose 15 MG; Start 07/28/18 at 13:30 Naloxone HCl (Narcan) 0.2 mg Q2M PRN IV .RESP RATE; Start 07/28/18 at 13:30 IV Flush (NS 3 ml) 3 ml per protocol IV ; Start 07/28/18 at 13:30 Acetaminophen/ Hydrocodone Bitart ([place] (5/325)) 2 tab Q6H PRN PO MODERATE PA IN LEVEL 4-6; Start 07/28/18 at 13:30 Benazepril HCl (Lotensin) 40 mg DAILY PO ; Start 07/29/18 at 09:00 Metformin HCl (Glucophage) 1,000 mg BID WITH MEALS PO Last administered on 07/29/18at 09:22; Admin Dose 1,000 MG; Start 07/28/18 at 17:55 Enoxaparin Sodium (Lovenox) 30 mg DAILY SC Last administered on 07/29/18at 09:25; Admin Dose 30 MG; Start 07/29/18 at 09:00 Miscellaneous Information 1 ea NOTE XX ; Start 07/28/18 at 17:00 Glucose (Glutose) 15 gm Q15M PRN PO DECREASED GLUCOSE; Start 07/28/18 at 17:00 Glucose (Glutose) 22.5 gm Q15M PRN PO DECREASED GLUCOSE; Start 07/28/18 at 17:00 Dextrose (D50w Syringe) 25 ml Q15M PRN IV DECREASED GLUCOSE; Start 07/28/18 at 17:00 Dextrose (D50w Syringe) 50 ml Q15M PRN IV DECREASED GLUCOSE; Start 07/28/18 at 17:00 Glucagon (Glucagen) 1 mg Q15M PRN IM DECREASED GLUCOSE; Start 07/28/18 at 17:00 Glucose (Glutose) 15 gm Q15M PRN BUCCAL DECREASED GLUCOSE; Start 07/28/18 at 17:00 CARLOS EDUARDO RIZO MD Jul 29, 2018 10:12
[2018-07-29 14:30] VITALS: BP 135/61; PULSE 68; RESP 18
== END 2018-07-29 18:20 | disposition home health service (06) | DRG 470 ==
LOC: REC 07:44 → MS1 15:23
PROVIDERS: ADMIT Orthopaedic Surgery Adult Reconstructive Orthopaedic Surgery; ATTEND Orthopaedic Surgery Adult Reconstructive Orthopaedic Surgery
PROC: 0SR904A Replacement of Right Hip Joint with Ceramic on Polyethylene Synthetic Substitute, Uncemented, Open Approach (ICD-10-PCS; principal; 2018-07-28 10:30)
DX: M16.11 Unilateral primary osteoarthritis, right hip (principal); Z68.41 Body mass index [BMI] 40.0-44.9, adult; E66.01 Morbid (severe) obesity due to excess calories; K21.9 Gastro-esophageal reflux disease without esophagitis; I10 Essential (primary) hypertension; E11.9 Type 2 diabetes mellitus without complications; D64.9 Anemia, unspecified
CPT/HCPCS: 72170; 73500; 73530; 80048; 82962; 85025; 85610; 88304; 88311; 97116; 97161; 97167; 97530; C1776; J0171; J0690; J0735; J1100; J1170; J1200; J1650; J1885; J2250; J2274; J2405; J2795; J3010; J3370